=== PATIENT | male | born 1990 | race Caucasian/White ===

== ENCOUNTER 2017-03-19 15:46 | Emergency (ER) | payer OTHER ==
[~2017-03-19 15:46] MED LIST: HYDR-4309 PO
--- NOTE | 2017-03-19 16:11 | ER Report ---
History and Physical Time Seen By MD: 15:49 Hx. of Stated Complaint: PATIENT FELL OFF CLIMBING WALL AND LANDED WITH LEFT ARM EXTENDED. HE HEARD A POP. ARM IS IN A SLING HPI/ROS CHIEF COMPLAINT: left elbow pain HISTORY OF PRESENT ILLNESS: PT was climbing the rock wall and fell onto his left elbow hyperextended. Pt heard/felt a pop. Ice and sling were applied and pt was brought to emergency room. Pt denies numbness. no pain with elevation of the shoulder. Did not hit my head. No loc. REVIEW OF SYSTEMS: Neuro: no numbness Musculoskeletal: + elbow pain Allergies: Coded Allergies: No Known Drug Allergies (Unverified , 04/19/15) Home Meds Active Scripts Hydrocodone Bit/Acetaminophen (NORCO 5-325 TABLET) 1 Each Tablet, 1 EACH PO Q4- 6H Y for PAIN, #20 TAB Prov:HARIKA HENDRICKSON [employer]ING TECHNICIAN 04/19/15 Past Medical/Surgical History Pmhx: alberto-schlatter ds, Htn, tibia fx L Pshx: hernia repair Reviewed Nurses Notes: Yes Old Medical Records Reviewed: Yes Hx Smoking: No Hx Alcohol Use: No Constitutional Vital Sign - Last 24 Hours 03/19/17 15:52 Temp 98.0 Pulse 111 Resp 20 B/P (MAP) 143/103 Pulse Ox 96 O2 Delivery Room Air Physical Exam General Appearance: The patient is alert, has no immediate need for airway protection and no current signs of toxicity. Eyes: Pupils equal and round no injection. Respiratory: Chest is non tender, lungs are clear to auscultation. Cardiac: regular rate and rhythm; + radial pulse are equal b/l Gastrointestinal: Abdomen is soft and non tender, no masses, bowel sounds normal. Musculoskeletal: Neck: Neck is supple and non tender. Extremities have full range of motion and are non tender accept for left upper extremity. Pt is able to fully abduct left arm from humerus; Pt has pain with supination and pronation at the left elbow. pt has full range of motion at the distal radius Skin: No rashes or lesions. Neuro: grossly intact DIFFERENTIAL DIAGNOSIS: After history and physical exam differential diagnosis was considered for: ligmanetous injury; fx radial head;fx olecranon, dislocated elbow Medical Decision Making EKG/Imaging Imaging + radial head fx ED Course/Re-evaluation ED Course Pt placed in long arm ulnar gutter splint. Pt given orthopedics numbner for follow up . Good pulses after splinting. PT refused pain medications. Did give him a hand written script for lortab 5/325 #10 to fill needed. Decision to Disposition Date: Mar 19, 2017 Decision to Disposition Time: 16:47 Depart Departure Latest Vital Signs Vital Signs Date Time Temp Pulse Resp B/P (MAP) Pulse Ox O2 Delivery O2 Flow Rate FiO2 03/19/17 15:52 98.0 111 20 143/103 96 Room Air Impression: Primary Impression: Radial head fracture, closed Condition: Condition Unchanged Disposition: HOME OR SELF-CARE Referrals: JESSENIA VEGA MD 2 Days Patient Instructions: Elbow Fracture (GEN) Additional Instructions: You fractured your radial head which is part of your elbow. Keep in splint until you are seen by orthopedics. Call orthopedics on Tuesday to arrange follow up. Motrin/tylenol as needed for pain. If your pain worsens I did send you home with a script for a narcotic which you can take one every 4-6 hours if pain worsens. Problem Qualifiers Primary Impression: Radial head fracture, closed Encounter type: initial encounter Fracture alignment: displaced Laterality : left Qualified Codes: S52.122A - Displaced fracture of head of left radius , initial encounter for closed fracture JUSTIN LAINEZ DO Mar 19, 2017 16:11
--- NOTE | 2017-03-19 16:39 | RADIOLOGY IMAGING REPORT ---
FACILITY: [facility] PATIENT NAME: Sarthak Claudio : 1990 MR: [id number] V: [id number] EXAM DATE: ORDERING PHYSICIAN: JUSTIN LAINEZ TECHNOLOGIST: Location: [facility] Patient: Sarthak Claudio : 1990 Visit/Account:[id number] Date of Sevice: 03/19/2017 EXAMINATION: Left elbow 3 views HISTORY: Injury. Fell off climbing wall. COMPARISON: None. FINDINGS: Intra-articular fracture of the left radial head, with fracture line extending along the articular archuleta rface laterally. There is slight cortical step-off along the articular surface at the fracture margin , measuring approximately 1 mm. The distal humerus and proximal ulna are unremarkable. Normal alignment. Soft tissue swelling surrounds the left elbow with a small elbow joint effusion. IMPRESSION: 1. Intra-articular fracture of the left radial head with slight cortical step-off along the articular surface measuring 1 mm. 2. Left elbow joint effusion. Report Dictated By: Radu Figueroa MD at 03/19/2017 4:32 PM Report E-Signed By: Radu Figueroa MD at 03/19/2017 4:34 PM [id number]
[2017-03-19 16:51] VITALS: BP 136/105
== END 2017-03-19 16:57 | disposition home or self-care (01) ==
LOC: ER 15:55
DX: S52.122A Displaced fracture of head of left radius, initial encounter for closed fracture (principal); W17.89XA Other fall from one level to another, initial encounter; Y93.31 Activity, mountain climbing, rock climbing and wall climbing
CPT/HCPCS: 29105; 73080; 99283; A4565